=== PATIENT | male | born 1970 | race Caucasian/White ===

== ENCOUNTER 2020-09-10 11:43 | Emergency (ER) | payer OTHER ==
--- NOTE | 2020-09-10 11:53 | EDM.PDOC ---
ED HPI GENERAL MEDICAL PROBLEM - General Chief Complaint: Back Pain or Injury Stated Complaint: [id number] LEFT SHOULDER PAIN PROBLEMS BREATHING Time Seen by Provider: 09/10/20 11:53 Source of Information: Reports: Patient, Old Records, RN, RN Notes Reviewed History Limitations: Reports: No Limitations - History of Present Illness INITIAL COMMENTS - FREE TEXT/NARRATIVE: Pt presents to ED via POV with c/o L) shoulder pain that radiates around trunk. Pt states that this started immediately [employer]ISTERED [employer]. Pt has not taken anything for pain. States he had a scope done on L) should approx 3 years ago where "arthritis was removed" and was told that he "had a pinched nerve" in the shoulder. Pt denies recent trauma to the area. States that he is having difficulty breathing due to the pain. Pt is unable to move LUE. Pt rates pain at a 9/10. Onset: Today, Sudden Duration: Constant Location: Reports: Chest, Back Quality: Reports: Sharp Severity: Severe Improves with: Reports: Immobilization Worsens with: Reports: Movement Associated Symptoms: Reports: No Other Symptoms Left Shoulder Pain Score (Numeric/FACES): 9 - Related Data Allergies Allergy/AdvReac Type Severity Reaction Status Date / Time Penicillins Allergy Cannot Verified 09/10/20 11:51 Remember Home Meds: Home Meds Sildenafil [Revatio] 1 tab PO ASDIRECTED 09/10/20 [History] Past Medical History Musculoskeletal History: Reports: Osteoarthritis - Past Surgical History Musculoskeletal Surgical History: Reports: Shoulder Surgery Social & Family History - Family History Family Medical History: No Pertinent Family History - Living Situation & Occupation Living situation: Reports: with Family Occupation: Employed ED ROS GENERAL - Review of Systems Review Of Systems: Comprehensive ROS is negative, except as noted in HPI. ED EXAM, GENERAL - Physical Exam Exam: See Below Exam Limited By: No Limitations General Appearance: Alert, WD/WN, No Apparent Distress Throat/Mouth: Normal Voice, No Airway Compromise Head: Atraumatic, Normocephalic Neck: Normal Inspection, Supple, Non-Tender, Full Range of Motion Respiratory/Chest: No Respiratory Distress, Lungs Clear, Normal Breath Sounds, No Accessory Muscle Use, Other (Left lateral mid-chest wall mildly tender) Cardiovascular: Normal Peripheral Pulses, Regular Rate, Rhythm, No Edema, No Gallop, No JVD, No Murmur, No Rub Peripheral Pulses: 3+: Radial (L), Radial (R) GI/Abdominal: Normal Bowel Sounds, Soft, Non-Tender Back Exam: Muscle Spasm (Left thoracic), Paraspinal Tenderness (Left thoracic, focally at T5,6,7 region). No: CVA Tenderness (L), CVA Tenderness (R), Vertebral Tenderness Extremities: Normal Inspection, Non-Tender, No Pedal Edema, Normal Capillary Refill, Limited Range of Motion (Left shoulder, due to back/rib pain) Neurological: Alert, Oriented, CN II-XII Intact, Normal Cognition, Normal Gait, No Motor/Sensory Deficits Psychiatric: Normal Affect, Normal Mood Skin Exam: Warm, Dry, Intact, Normal Color, No Rash Course - Vital Signs Last Recorded V/S: Last Vital Signs Temp 97 F 09/10/20 11:52 Pulse 86 09/10/20 11:52 Resp 20 09/10/20 11:52 BP 119/77 09/10/20 11:52 Pulse Ox 97 09/10/20 11:52 - Orders/Labs/Meds Orders: Active Orders 24 hr Category Date Time Status EKG 12 Lead [EKG Documentation Completion] [RC] STAT Care 09/10/20 11:59 Active Labs: Laboratory Tests 09/10/20 09/10/20 09/10/20 Range/Units 12:06 12:06 12:06 WBC 10.1 H (5.0-10.0) 10^3/uL RBC 4.69 (4.6-6.2) 10^6/uL Hgb 14.4 (14.0-18.0) g/dL Hct 42.3 (40.0-54.0) % MCV 90.2 (80-100) fL MCH 30.7 (27.0-34.0) pg MCHC 34.0 (33.0-35.0) g/dL Plt Count 248 (150-450) 10^3/uL Neut % (Auto) 68.1 (42.2-75.2) % Lymph % (Auto) 21.9 (20.5-50.1) % Lawrence % (Auto) 7.7 (2-8) % Eos % (Auto) 1.7 (1.0-3.0) % Baso % (Auto) 0.6 (0.0-1.0) % D-Dimer, Quantitative 131 (0-400) ng/mL Sodium 135 L (136-145) mmol/L Potassium 4.1 (3.5-5.1) mmol/L Chloride 99 (98-107) mmol/L Carbon Dioxide 26 (21-32) mmol/L Anion Gap 14.1 H (7-13) mEq/L BUN 11 (7-18) mg/dL Creatinine 1.10 (0.70-1.30) mg/dL Est Cr Clr Drug Dosing 86.52 mL/min Estimated GFR (MDRD) > 60 BUN/Creatinine Ratio 10.0 (No establ ref range) Glucose 103 H (70-99) mg/dL Calcium 8.7 (8.5-10.1) mg/dL Total Bilirubin 0.5 (0.2-1.0) mg/dL AST 13 L (15-37) U/L ALT 20 (16-63) U/L Alkaline Phosphatase 88 (46-116) U/L Troponin I < 0.017 (0.000-0.056) ng/mL C-Reactive Protein 1.7 H (0.0-0.9) mg/dL Total Protein 6.9 (6.4-8.2) g/dL Albumin 3.6 (3.4-5.0) g/dL Globulin 3.3 Albumin/Globulin Ratio 1.1 Meds: Medications Discontinued Medications Generic Name Dose Route Start Last Admin Trade Name Freq PRN Reason Stop Dose Admin Hydrocodone Bitart/Acetaminophen 1 tab 09/10/20 11:59 09/10/20 12:17 Acetaminophen/Hydrocodone 325-10 Mg Tab PO 09/10/20 12:00 1 tab ONETIME ONE Administration Ibuprofen 800 mg 09/10/20 12:00 09/10/20 12:17 Ibuprofen 800 Mg Tab PO 09/10/20 12:01 800 mg ONETIME ONE Administration - Radiology Interpretation Free Text/Narrative:: XR Chest: no acute process per Rad. report. - Re-Assessments/Exams Free Text/Narrative Re-Assessment/Exam: 09/10/20 12:59 Pt improved following tx in ER. Departure - Departure Time of Disposition: 13:00 Disposition: Home, Self-Care 01 Condition: Good Clinical Impression: Thoracic radiculopathy - Discharge Information *PRESCRIPTION DRUG MONITORING PROGRAM REVIEWED*: Not Applicable *COPY OF PRESCRIPTION DRUG MONITORING REPORT IN PATIENT LISA: Not Applicable Instructions: Radicular Pain, Pinched Nerve, Musculoskeletal Pain Forms: ED Department Discharge Additional Instructions: Rx: Cyclobenzaprine 10mg Rx: Ibuprofen 800mg Activity as tolerated. Follow up in clinic If not improving as expected in 3 to 5 days. Sepsis Event Note (ED) - Focused Exam Vital Signs: Vital Signs Temp Pulse Resp BP Pulse Ox 09/10/20 11:52 97 F 86 20 119/77 97 - My Orders Last 24 Hours: My Active Orders 09/10/20 11:59 EKG 12 Lead [EKG Documentation Completion] [RC] STAT - Assessment/Plan Last 24 Hours: My Active Orders 09/10/20 11:59 EKG 12 Lead [EKG Documentation Completion] [RC] STAT
[2020-09-10] MEDS ORDERED: Acetaminophen/HYDROcodone 325-10 MG Tab PO ONE (11:59)
[2020-09-10] MEDS ORDERED: Ibuprofen 800 MG Tab PO ONE (12:00)
[2020-09-10 12:42] LABS: ANION GAP 14.1 mEq/L (7-13); CHLORIDE,CL 99 mmol/L (98-107); SODIUM,NA 135 mmol/L (136-145)
--- NOTE | 2020-09-10 12:45 | CR ---
EXAMINATION: Chest 2V SEX: Male AGE: 50 years CLINICAL HISTORY: 50-year-old male with "pleuritic" posterior left chest wall pain. No comparison CXR. Interpretation: Negative exam. Normal cardiac silhouette (size and configuration). No vascular congestion, alveolar edema or pleural effusions. Isaias thorax unremarkable. No lung mass or hilar lymphadenopathy. No alveolar consolidation, atelectasis or collapse. No peripheral "groundglass" interstitial lung densities. No pneumothorax or pneumomediastinum. Midline tracheal bronchial airway unremarkable. No foreign bodies.
== END 2020-09-10 13:08 | disposition home or self-care (01) ==
LOC: DL.ED 11:43
DX: M54.14 Radiculopathy, thoracic region (principal); Z88.0 Allergy status to penicillin
CPT/HCPCS: 36415; 71046; 80053; 84484; 85025; 85379; 86140; 93005; 99283; 99285-25; A9270-GY